=== PATIENT | male | born 1975 | race Hispanic/Latino ===

== ENCOUNTER 2025-08-10 00:51 | Emergency (ER) | payer OTHER ==
[~2025-08-10] VITALS: Ht 170.2 cm; Wt 70.8 kg
--- NOTE | 2025-08-10 01:17 | EKG ---
[facility] Test Date: 2025-08-10 Test Time: 01:09:20 Pat Name: MANNY ASHFORD Department: [facility] Room: Gender: M Patient Flow Coordinator: [id number] : 1975 Requested By: ZECHARIAH LAMB Order Number: [id number] Reading MD: Kyra Sosa Measurements Intervals [place] Rate: 65 P: 30 NV: 140 QRS: -30 QRSD: 98 T: 26 QT: 409 QTc: 427 Interpretive Statements Sinus rhythm Left axis deviation ST elev, probable normal early repol pattern No previous ECG available for comparison Electronically Signed On 08-10-2025 12:27:31 [employer] by Kyra Sosa Please click the below link to view image of tracing.
[2025-08-10 01:27] LABS: IMMATURE GRANULOCYTE ABSOLUTE 0.23 K/uL (0-1); NUCLEATED RED BLOOD CELLS 0.0 % (0.0-0.19); PLATELET COUNT (AUTO) 291 K/uL (130-400); RED BLOOD CELL COUNT(AUTO) 4.47 MIL/uL (4.50-6.20); RED CELL DISTRIBUTION WIDTH 13.2 % (11.0-15.5); WHITE BLOOD COUNT (AUTO) 12.0 K/uL (4.8-10.8)
[2025-08-10 01:35] LABS: CREATININE 1.1 mg/dL (0.5-1.3); GLOMERULAR FILTR. RATE CALC 82.0 mL/min (>90); GLUCOSE,RANDOM 158.0 mg/dL (70-105); SODIUM SERUM 139.0 mmol/L (136-145); UREA NITROGEN, BLOOD 18.0 mg/dL (7-18)
[2025-08-10 01:56] LABS: AMPHET/METH SCREEN,URINE NEGATIVE (NEGATIVE); BARBITURATE SCREEN, URINE NEGATIVE (NEGATIVE); CANNABINOID SCREEN,URINE NEGATIVE (NEGATIVE); COCAINE SCREEN,URINE NEGATIVE (NEGATIVE)
--- NOTE | 2025-08-10 02:09 | ERN ---
General Chief Complaint: Hypertension Stated Complaint: C/O HIGH B/P WITH SHOULDER PAIN Time Seen by MD: 01:07 History of Present Illness Initial Comments 50-year-old male no past medical history here for evaluation of hypertension. Patient states he was feeling generalized malaise earlier today when he decided to check his blood pressure and it was 170 systolic. He was concerned about the high blood pressure and has generalized moist thus he decided come to the emergency room for evaluation. No fever no cough no shortness a breath. No palpitations. No chest pain. No acute symptoms at this time Allergies: Coded Allergies: No Known Allergies (Unverified Allergy, Unknown, 08/10/25) Past Medical History Past Medical History: No Pertinent History Past Surgical History: None Review of Systems: was completed, & the rest were negative. Physical Exam General Appearance: (+) no apparent distress Orientation: (+) alert, (+) oriented x 3 Eye: bilateral eye normal inspection, bilateral eye PERRL, bilateral eye EOMI Ear, Nose, Throat: (+) hearing grossly normal, (+) moist mucous membraine, (+) normal pharynx, (+) other documentation (No obvious Carries on left molar however tender to palpation) Neck: (+) normal inspection Respiratory: (+) chest non-tender Heart: (+) regular; (-) murmur Gastrointestinal: (+) soft, (+) non-tender Neurologic/Psychiatric: (+) normal speech, (+) no motor defecits Results Laboratory and Microbiology Lab and Micro Result Laboratory Tests Test 08/10/25 01:20 08/10/25 01:26 White Blood Count 12.0 K/uL (4.8-10.8) H Red Blood Count 4.47 MIL/uL (4.50-6.20) L Hemoglobin 14.1 g/dL (14.0-18.0) Hematocrit 41.2 % (42-54) L Mean Corpuscular Volume 92.2 fL (79-99) Mean Corpuscular Hemoglobin 31.5 pg (27.0-33.0) Mean Corpuscular Hemoglobin Concent 34.2 g/dL (32.0-36.0) Red Cell Distribution Width 13.2 % (11.0-15.5) Platelet Count 291 K/uL (130-400) Mean Platelet Volume 10.0 fL (7.5-10.5) Immature Granulocyte % (Auto) 1.9 % (0-1) H Neutrophils (%) (Auto) 73.0 % (40.0-77.0) Lymphocytes (%) (Auto) 17.0 % (21.0-51.0) L Monocytes (%) (Auto) 7.3 % (3.0-13.0) Eosinophils (%) (Auto) 0.2 % (0.0-8.0) Basophils (%) (Auto) 0.6 % (0.0-5.0) Neutrophils # (Auto) 8.8 K/uL (1.8-7.7) H Lymphocytes # (Auto) 2.1 K/uL (1.0-4.8) Monocytes # (Auto) 0.9 K/uL (0.1-1.0) Eosinophils # (Auto) 0.03 K/uL (0.00-0.70) Basophils # (Auto) 0.07 K/uL (0.00-0.20) Absolute Immature Granulocyte (auto 0.23 K/uL (0-1) Nucleated Red Blood Cells 0.0 % (0.0-0.19) Sodium Level 139 mmol/L (136-145) Potassium Level 3.3 mmol/L (3.5-5.1) L Chloride Level 103 mmol/L (101-111) Carbon Dioxide Level 28 mmol/L (21-32) Blood Urea Nitrogen 18 mg/dL (7-18) Creatinine 1.1 mg/dL (0.5-1.3) Glomerular Filtration Rate Calc 82 mL/min (>90) Random Glucose 158 mg/dL (70-105) H Total Calcium 8.5 mg/dL (8.5-10.1) Troponin I High Sensitivity 7 ng/L (4-75) Urine Opiates Screen NEGATIVE (NEGATIVE) Urine Barbiturates Screen NEGATIVE (NEGATIVE) Urine Phencyclidine Screen NEGATIVE (NEGATIVE) Urine Amphetamines Screen NEGATIVE (NEGATIVE) Urine Benzodiazepines Screen NEGATIVE (NEGATIVE) Urine Cocaine Screen NEGATIVE (NEGATIVE) Urine Marijuana (THC) Screen NEGATIVE (NEGATIVE) MDM 50-year-old male here for episode of hypertension. Vital signs here are stable. We will get cardiac workup and likely discharge home. Disposition pending res ults of labs and imaging. ED Course Orders Procedure Category Date Status Time Cbc With Differential LAB 08/10/25 Complete 01:07 Basic Metabolic Panel LAB 08/10/25 Complete 01:07 Troponin I High LAB 08/10/25 Complete Sensitivity 01:07 12 Lead Ekg Tracing- EKG 08/10/25 Complete Technical 01:07 Drug Screen Urine LAB 08/10/25 Complete 01:07 Chest 1vw RAD 08/10/25 Taken 02:06 Ketorolac PHA 08/10/25 Transmitted Tromethamine 15mg/Ml 03:30 Hydrocodone/Apap PHA 08/10/25 Transmitted 5/325 ([place] 5/325mg) 03:30 Amox/Clav 875/125mg PHA 08/10/25 Transmitted Tab (Augmentin 875-1 03:30 Vital Signs Date Time Temp Pulse Resp B/P (MAP) Pulse Ox O2 Delivery O2 Flow Rate FiO2 08/10/25 02:15 66 14 119/61 97 Room Air* 0 21 08/10/25 01:48 71 14 125/64 98 Room Air* 0 21 08/10/25 01:28 67 16 146/68 97 Room Air* 0 21 08/10/25 00:54 97.0 77 20 150/82 99 Room Air Extensive discussing was had with the patient and patient's . Apparently he has a history of dental pain for which he is to follow up with a dentist in the near future. He was seen and evaluated by a family friend who is also a doctor. They did not see him but prescribed him azithromycin. He has finished the azithromycin but still remains in pain. Because azithromycin does not cover the appropriate bacteria, we will start him on Augmentin for seven days. We will also give him pain relief here in the emergency room. We will start him on one dose of Augmentin and have him start on further course at home. He is advised to follow up with the PCP and dental for management of pain. Pain is likely causing the hypertension. Reviewed all labs and imaging with the patient. We will dispo home at this time. Advised on concerning signs and symptoms for which to return to the emergency room. All questions answered all labs and imaging reviewed with the patient. They are comfortable with discharge home. HEART Score Response (Comments) Value History: Low suspicion (0) 0 EKG: Normal 0 Age: 45-65yrs (+1) 1 Risk Factors: No known risk factors (0) 0 Initial Troponin: Normal limit (0) 0 HEART Score Risk: Low Risk for MACE (1-3) Total 1 DX & DISP Disposition: Discharge Departure Impression: Primary Impression: Dental abscess Condition: Stable Scripts Amoxicillin/Potassium Clav (Amox Tr-K Clv 875-125 mg Tab) 875 Mg-125 Mg Tablet 1 TAB PO BID for 9 Days, #18 TAB 0 Refills Prov: ZECHARIAH LAMB MD 08/10/25 Referrals: HARVINDER BECKMAN MD (PCP) ZECHARIAH LAMB MD Aug 10, 2025 02:09
[2025-08-10] MEDS ORDERED: AMOX1TAB16 PO (03:23)
[2025-08-10] MEDS: HYDROcodone/APAP 5/325 1 TAB TABLET PO ONE (03:32)
[2025-08-10] MEDS: AMOX/CLAV 875/125MG TAB PO ONE (03:32)
[2025-08-10 04:07] VITALS: BP 112/64; PULSE 62; RESP 14; TEMP 97.2; O2SAT 99
--- NOTE | 2025-08-10 04:08 | HMCIMG ---
EXAM: CR Chest, 1 view CLINICAL HISTORY: Chest pain. COMPARISON: None provided. FINDINGS: The lungs show no infiltrates or other acute findings. No pleural effusion or pneumothorax. The cardiomediastinal silhouette is within normal limits. No acute osseous abnormality. IMPRESSION: No acute cardiopulmonary process is evident. /[place]
== END 2025-08-10 04:09 | disposition home or self-care (01) ==
LOC: EDH 00:51
DX: K04.7 Periapical abscess without sinus (principal); I10 Essential (primary) hypertension; Z79.899 Other long term (current) drug therapy
CPT/HCPCS: 99285; 84484; 80048; 80305; 85025; 36415; 71045; 96372; 93005; J1885